=== PATIENT | female | born 1955 | race African-American/Black ===

== ENCOUNTER 2023-03-02 06:45 | Emergency (ER) | payer MEDICARE, MEDICAID ==
[~2023-03-02] VITALS: Ht 165.1 cm; Wt 110.2 kg
[2023-03-02 06:54] VITALS: O2SAT 98
[2023-03-02 10:32] VITALS: BP 138/75; PULSE 77; RESP 16; TEMP 98.2
== END 2023-03-02 10:37 | disposition home or self-care (01) ==
LOC: ER 07:33
DX: R51.9 Headache, unspecified (principal); I10 Essential (primary) hypertension; E11.9 Type 2 diabetes mellitus without complications
CPT/HCPCS: 99284